=== PATIENT | male | born 1965 | race Caucasian/White ===

== ENCOUNTER 2022-11-26 13:30 | Outpatient (CLI) | payer BC, SELFPAY | END 2022-11-26 13:31 | disposition home or self-care (01) | LOC: NFLDREF 18:55 | PROVIDERS: PCP Family Medicine; Referring Provider Family Medicine; Visit Provider Internal Medicine | DX: I48.91 Unspecified atrial fibrillation (principal) | CPT/HCPCS: 80061 ==

== ENCOUNTER 2024-04-16 13:26 | Outpatient (CLI) | payer BC, SELFPAY | END 2024-04-16 13:27 | disposition home or self-care (01) | PROVIDERS: PCP Physician Assistant Medical; Visit Provider Physician Assistant Medical | DX: E78.5 Hyperlipidemia, unspecified (principal); R73.9 Hyperglycemia, unspecified; F90.2 Attention-deficit hyperactivity disorder, combined type; F98.8 Other specified behavioral and emotional disorders with onset usually occurring in childhood and adolescence | CPT/HCPCS: 80053; 80061; 84439; 84443 ==

== ENCOUNTER 2024-10-05 07:41 | Outpatient (CLI) | payer BC, SELFPAY | END 2024-10-05 07:42 | disposition home or self-care (01) | LOC: NFLDREF 10-06 07:05 | PROVIDERS: PCP Physician Assistant Medical; Referring Provider Physician Assistant Medical; Visit Provider Physician Assistant Medical | DX: E03.8 Other specified hypothyroidism (principal); R53.83 Other fatigue; R73.03 Prediabetes; E78.5 Hyperlipidemia, unspecified; R06.83 Snoring | CPT/HCPCS: 82306; 82607; 82728; 84403; 84439; 84443 ==

== ENCOUNTER 2024-10-19 12:35 | Outpatient (CLI) | payer BC, SELFPAY | END 2024-10-19 12:36 | disposition home or self-care (01) | LOC: RAD 12:36 | PROVIDERS: PCP Physician Assistant Medical; Visit Provider Internal Medicine | DX: I48.91 Unspecified atrial fibrillation (principal); I34.0 Nonrheumatic mitral (valve) insufficiency; R55 Syncope and collapse; Z86.79 Personal history of other diseases of the circulatory system; Z87.898 Personal history of other specified conditions | CPT/HCPCS: 93306 ==

== ENCOUNTER 2024-11-01 08:42 | Outpatient (CLI) | payer BC, SELFPAY ==
--- NOTE | 2024-11-13 12:26 | W.PM.SLEEP ---
Sleep Study Details Details Interpreting Provider: Adam Date of Sleep Study: 11/01/24 Sleep Study Details: STUDY TYPE:? Home unattended ? BMI:? 30.5 ORDERING PROVIDER:? Adam INDICATION:? Concern about sleep apnea ? SLEEP SUMMARY:? 476 minutes RESPIRATORY SUMMARY:? AHI 18.4 Low oxygen 84 1.4% of study oxygen less than 90% Snoring 97.6% PERIODIC LIMB MOVEMENTS OF SLEEP:? Not recorded CARDIAC:? Range 45-94, mean 59.7 beats per minute IMPRESSION:? Moderate obstructive sleep apnea RECOMMENDATION: Treatment options include CPAP, dental appliance and/or airway expansion surgery.
== END 2024-11-01 08:43 | disposition home or self-care (01) ==
LOC: SLEEP 08:42
PROVIDERS: PCP Physician Assistant Medical; Visit Provider Otolaryngology
DX: G47.33 Obstructive sleep apnea (adult) (pediatric) (principal)
CPT/HCPCS: 95806